=== PATIENT | female | born 1995 | race Caucasian/White ===

== ENCOUNTER → 2020-04-23 17:42 | Observation (INO) ==
[~2020-04-23 17:42] MED LIST: EPHEDrine 50 MG/ML VIAL IVP PRN; Epidural Premix (fent/bupiv) 110 ML EP SCH; Terconazole Vag CRM 20 GM TUBE VG SCH
== END | disposition home or self-care (01) ==
LOC: 1NENULAB
PROVIDERS: ADMIT Advanced Practice Midwife; ATTEND Advanced Practice Midwife

== ENCOUNTER 2020-04-26 17:49 | Inpatient (IN) ==
[2020-04-26] MEDS: Acetaminophen 325 MG TABLET PO PRN (15:17)
[2020-04-26] MEDS: Ringers Solution, Lactated 1,000 ML IVC SCH (17:46)
[2020-04-26] MEDS: Ondansetron 4 MG/2 ML VIAL IVP PRN (17:48)
[~2020-04-26 17:49] MED LIST changes: -EPHEDrine 50 MG/ML VIAL IVP PRN; -Epidural Premix (fent/bupiv) 110 ML EP SCH; +Famotidine 20 MG/2 ML VIAL IVP PRN; +Metoclopramide 10 MG/2 ML VIAL IVP PRN; +Naloxone 0.4 MG/ML INJ IVP PRN; +Oxytocin 20 units/ LR 1000 mL 20 UNIT/1,000 ML BAG IVC SCH; +Ringers Solution, Lactated 1,000 ML IVC ONE; +Ringers Solution, Lactated 1,000 ML ONE; +Scopolamine Patch 1.5 MG PATCH.TD72 TD SCH; -Terconazole Vag CRM 20 GM TUBE VG SCH
[2020-04-26 17:51] LABS: Basophils % 0.3 %; Eosinophils # 0.1 K/mcL (0.0-0.6); Eosinophils % 0.7 %; Hemoglobin 11.8 g/dL (11.5-15.4); Immature Granulocytes % 0.3 % (0-4); Lymphocytes # 3.5 K/mcL (0.6-4.6); Lymphocytes % 35.9 %; Mean Corpuscular HGB Conc 31.9 g/dL (31.6-35.5); Mean Corpuscular Hemoglobin 26.8 pg (28.0-33.3); Mean Corpuscular Volume 84.1 fL (83.0-100.0); Mean Platelet Volume 11.2 fL (9.4-12.4); Monocytes # 0.8 K/mcL (0.0-1.3); Monocytes % 8.2 %; Neutrophils # 5.3 K/mcL (1.6-8.9); Platelet Count 220 K/mcL (140-400); Red Cell Distribution Width 13.1 % (11.5-14.5); Segmented Neutrophils % 54.6 %; White Blood Count 9.7 K/mcL (4.3-11.1)
[2020-04-26] MEDS: *HR* Buprenorphine HCl 2 MG SUBLINGUAL TABLET SL SCH ×2 (18:36→21:13)
[2020-04-26 18:51] LABS: Amphetamine Screen,Urine Negative ng/mL (Cutoff=1000); Barbiturate Screen,Urine Negative ng/mL (Cutoff=200); Benzodiazepines Screen,Urine Negative ng/mL (Cutoff=200); Cannabinoid Screen,Urine Positive ng/mL (Cutoff = 50); Cocaine Screen,Urine Negative ng/mL (Cutoff= 300); Opiate Screen,Urine Negative ng/mL (Cutoff=300); Phencyclidine Screen,Urine Negative ng/mL (Cutoff=25)
[2020-04-26 20:18] LABS: Adenovirus Not Detected (Not Detect); Bordetella Pertussis Not Detected (Not Detect); Chlamydophila pneumoniae Not Detected (Not Detect); Coronavirus 229E Not Detected (Not Detect); Coronavirus HKU1 Not Detected (Not Detect); Coronavirus NL63 Not Detected (Not Detect); Coronavirus OC43 Not Detected (Not Detect); Human Metapneumovirus Not Detected (Not Detect); Human Rhinovirus/Enterovirus Not Detected (Not Detect); Influenza A Subtype 2009 H1 Not Detected (Not Detect); Influenza B Not Detected (Not Detect); Mycoplasma pneumoniae Not Detected (Not Detect); Parainfluenza Virus 1 Not Detected (Not Detect); Parainfluenza Virus 2 Not Detected (Not Detect); Parainfluenza Virus 3 Not Detected (Not Detect); Parainfluenza Virus 4 Not Detected (Not Detect); Respiratory Syncytial Virus Not Detected (Not Detect); SARS-CoV-2 Not Detected (Not Detect)
[2020-04-26] MEDS ORDERED: EPHEDrine 50 MG/ML VIAL IVP PRN (20:35)
[2020-04-26] MEDS ORDERED: *HR* FentaNYL (PF) 100 MCG/2 ML VIAL EP ONE (20:35)
[2020-04-26] MEDS ORDERED: *HR* FentaNYL (PF) 100 MCG/2 ML VIAL ONE ×2 (20:37→22:06)
[2020-04-26] MEDS: Epidural Premix (fent/bupiv) 110 ML EP SCH (22:01)
[2020-04-26] MEDS ORDERED: Ropivacaine/PF 0.2% 20 ML VIAL ONE (22:06)
[2020-04-27] MEDS ORDERED: *HR* FentaNYL (PF) 100 MCG/2 ML VIAL ONE ×2 (05:50→17:52)
[2020-04-27] MEDS: *HR* Buprenorphine HCl 2 MG SUBLINGUAL TABLET SL SCH ×2 (09:22→15:27)
[2020-04-27] MEDS: Ringers Solution, Lactated 1,000 ML IVC SCH ×2 (11:39→16:42)
[2020-04-27] MEDS: Epidural Premix (fent/bupiv) 110 ML EP SCH ×2 (11:56→17:38)
[2020-04-27] MEDS: Ondansetron 4 MG/2 ML VIAL IVP PRN (12:43)
[2020-04-27] MEDS: Acetaminophen 325 MG TABLET PO PRN (16:41)
[2020-04-27] MEDS ORDERED: Ropivacaine/PF 0.2% 20 ML VIAL ONE (17:52)
[2020-04-28] MEDS: *HR* Buprenorphine HCl 2 MG SUBLINGUAL TABLET SL SCH (00:23)
[2020-04-28] MEDS ORDERED: Lidocaine/EPI 1:200k 2% PF 20 ML VIAL ONE (01:00)
[2020-04-28] MEDS ORDERED: Dexamethasone 4 MG/ML VIAL ONE (01:40)
[2020-04-28] MEDS ORDERED: Ketorolac 30 MG/ML VIAL ONE (01:40)
[2020-04-28] MEDS ORDERED: Ondansetron 4 MG/2 ML VIAL ONE (01:40)
[2020-04-28] MEDS ORDERED: Acetaminophen IV 1,000 MG/100 ML BAG IVPB ONE (01:42)
[2020-04-28] MEDS ORDERED: cephALEXin 500 MG CAPSULE PO SCH (02:00)
[2020-04-28] MEDS ORDERED: CeFAZolin 2,000 MG/50 ML BAG IVPB ONE (02:00)
[2020-04-28] MEDS ORDERED: Oxytocin 20 units/ LR 1000 mL 20 UNIT/1,000 ML BAG IVC SCH (02:09)
[2020-04-28] MEDS ORDERED: Lanolin 7 G OINT...G. TP PRN (02:09)
[2020-04-28] MEDS ORDERED: Benzocaine/Menthol 56 GM AEROSOL SPRAY TP PRN (02:09)
[2020-04-28] MEDS: Ibuprofen 600 MG TABLET PO SCH ×4 (05:39→23:42)
[2020-04-28] MEDS ORDERED: Acetaminophen 325 MG TABLET PO PRN (06:00)
[2020-04-28] MEDS ORDERED: metroNIDAZOLE 500 MG TABLET PO SCH (09:00)
[2020-04-28] MEDS: metroNIDAZOLE 500 MG TABLET PO SCH ×3 (09:08→20:07)
[2020-04-28] MEDS: Prenatal Vit/FA 1 EACH TABLET PO SCH (09:08)
[2020-04-28] MEDS: *HR* Buprenorphine HCl 8 MG TAB.SUBL SL SCH (09:08)
[2020-04-28] MEDS: cephALEXin 500 MG CAPSULE PO SCH ×3 (09:09→20:07)
[2020-04-28] MEDS ORDERED: miSOPROStoL 100 MCG TABLET RC ONE (11:21)
[2020-04-29 00:28] VITALS: BP 100/66
[2020-04-29] MEDS: Ibuprofen 600 MG TABLET PO SCH (05:15)
[2020-04-29] MEDS: metroNIDAZOLE 500 MG TABLET PO SCH (07:40)
[2020-04-29] MEDS: cephALEXin 500 MG CAPSULE PO SCH (07:40)
[2020-04-29] MEDS: *HR* Buprenorphine HCl 8 MG TAB.SUBL SL SCH (07:41)
[2020-04-29] MEDS: Prenatal Vit/FA 1 EACH TABLET PO SCH (07:41)
== END 2020-04-29 11:22 | disposition home or self-care (01) | DRG 560 ==
LOC: 1NENULAB → 1NENUOBS 04-28 04:29
PROVIDERS: ADMIT Student in an Organized Health Care Education/Training Program; ATTEND Student in an Organized Health Care Education/Training Program